=== PATIENT | female | born 1965 | race Caucasian/White ===

== ENCOUNTER 2017-04-19 08:55 | Outpatient (CLI) | payer SELFPAY | END 2017-04-19 08:56 | disposition home or self-care (01) | LOC: LAB 08:55 | PROVIDERS: ATTEND Nurse Practitioner Primary Care | DX: E03.9 Hypothyroidism, unspecified (principal) | CPT/HCPCS: 36415; 84443 ==

== ENCOUNTER 2017-08-07 11:56 | Outpatient (CLI) | payer OTHER ==
--- NOTE | 2017-08-07 13:51 | XRAY Report ---
DATE OF SERVICE: 08/07/2017 THREE VIEW RIGHT KNEE: 08/07/2017 CLINICAL INDICATION: Pain, status post fall. FINDINGS: AP, lateral, sunrise views of the right knee demonstrate no evidence of fracture or dislocation. No effusion is present. Anterior soft tissue swelling is seen. No foreign body is seen in the soft tissues. IMPRESSION: ANTERIOR SOFT TISSUE SWELLING, BUT NO EVIDENCE OF FRACTURE OR RADIOPAQUE FOREIGN BODY. TD: 08/07/2017 14:50
== END 2017-08-07 11:57 | disposition home or self-care (01) ==
LOC: DI 11:56
PROVIDERS: ATTEND Internal Medicine
DX: M25.561 Pain in right knee (principal); R22.41 Localized swelling, mass and lump, right lower limb

== ENCOUNTER 2018-11-12 23:13 | Emergency (ER) | payer OTHER ==
--- NOTE | 2018-11-12 23:32 | ED Physician Documentation ---
PD HPI CHEST PAIN - Stated complaint Stated Complaint: HIGH BLOOD PRESSURE - Chief complaint Chief Complaint: Cardiac - History obtained from History obtained from: Patient - History of Present Illness Timing - onset: Today (She was feeling some intermittent skipping heartbeat palpitations without any chest pain or dyspnea. She is that she should take her blood pressure and it was markedly elevated at home. She had recently started taking her blood pressure at times at home and it noted it to be as low as 120/80 last week. Had been somewhat elevated when she was at the doctor's office but usually is good at home. She does not take any blood pressure medicines.) Timing - onset during: Rest, Light activity Timing - duration: Minutes (She does not have any chest pain or dyspnea per se. She was having a feeling of skipped beats lasting a few minutes at a time intermittently today. She noticed it a little bit more this evening and that was when she took her blood pressure that was elevated.) Timing - details: Intermittant Quality: Other (feeling of palpitations). No: Pressure, Tightness Improved by: No: Rest (she noted the palpitations mainly when resting this evening) Worsened by: No: Inspiration, Movement Associated symptoms: Palpitations. No: Shortness of air, Nausea, Feeling faint / dizzy, Cough Similar symptoms before: Has not had sx before Recently seen: Not recently seen Review of Systems Constitutional: denies: Fever Nose: denies: Rhinorrhea / runny nose, Congestion Throat: denies: Sore throat Cardiac: reports: Palpitations. denies: Chest pain / pressure, Pedal edema, Calf pain Respiratory: denies: Dyspnea, Cough GI: denies: Abdominal Pain, Nausea, Vomiting, Diarrhea Musculoskeletal: denies: Neck pain, Back pain, Extremity swelling PD PAST MEDICAL HISTORY - Past Medical History Past Medical History: Yes Cardiovascular: None Respiratory: None Neuro: None Endocrine/Autoimmune: HyPOthyroidism - Past Surgical History Past Surgical History: Yes HEENT: Tonsil/Adenoidectomy - Present Medications Home Medications: Ambulatory Orders Medication Instructions Recorded Confirmed Levothyroxine [Synthroid] 125 mcg PO QDAC 11/12/18 11/12/18 Losartan [Cozaar] 50 mg PO DAILY #30 tablet 11/13/18 - Allergies Allergies/Adverse Reactions: Allergies Allergy/AdvReac Type Severity Reaction Status Date / Time No Known Drug Allergies Allergy Verified 11/12/18 23:23 - Social History Does the pt smoke?: No Smoking Status: Never smoker Does the pt drink ETOH?: Yes Does the pt have substance abuse?: No - Family History Family history: reports: CAD - Immunizations Immunizations are current?: Yes PD ED PE NORMAL - Vitals Vital signs reviewed: Yes - General General: Alert and oriented X 3, No acute distress, Well developed/nourished - HEENT HEENT: Pharynx benign - Neck Neck: Supple, no meningeal sign, No adenopathy - Cardiac Cardiac: RRR, No murmur - Respiratory Respiratory: Clear bilaterally - Abdomen Abdomen: Normal bowel sounds, Soft, Non distended - Derm Derm: Normal color, Warm and dry - Extremities Extremities: No tenderness to palpate, Normal ROM s pain, No edema, No calf tenderness / cord - Neuro Neuro: Alert and oriented X 3, No motor deficit, Normal speech Results - Vitals Vitals: Vital Signs - 24 hr 11/12/18 11/12/18 11/12/18 23:19 23:24 23:45 Temperature 36.9 C Heart Rate 82 69 65 Respiratory 18 16 Rate Blood Pressure 207/108 H 184/101 H 174/99 H O2 Saturation 96 97 11/13/18 00:39 Temperature Heart Rate 66 Respiratory 16 Rate Blood Pressure 148/99 H O2 Saturation 95 Oxygen O2 Source Room air - EKG (time done) 23:19 Rate: Rate (enter#) (67) Rhythm: NSR [place]: Normal Intervals: Normal GA QRS: Normal Ischemia: Normal ST segments. No: ST elevation c/w ischemia, ST depression Compare to prior EKG: Old EKG unavailable - Labs Labs: Laboratory Tests 11/12/18 11/12/18 11/12/18 23:55 23:55 23:55 Sodium 136 Potassium 3.6 Chloride 99 L Carbon Dioxide 24 Anion Gap 13.0 BUN 22 H Creatinine 0.6 Estimated GFR (MDRD) 105 Glucose 114 H Calcium 8.9 Magnesium 2.3 Total Bilirubin 0.9 AST 32 ALT 52 Alkaline Phosphatase 63 Troponin I < 0.04 Total Protein 7.0 Albumin 3.8 Globulin 3.2 Albumin/Globulin Ratio 1.2 Lipase 47 TSH 8.49 H PD MEDICAL DECISION MAKING - ED course Complexity details: considered differential (She describes palpitations. Its associated with the quite elevated blood pressure. However she does not have consistent history of high blood pressure. I did check electrolytes kidney function and troponin to ensure these are okay. Her potassium was at the low end of normal at 3.6 and I gave her extra dose. At this point to presume the blood pressure just spiraled up related to catecholamine feedback. I think her palpitations sound benign. The blood pressure was improving here without specific treatment and at time of discharge was down to 147/99. I talked with her and told her I did not feel they wanted to specifically treat the blood pressure right now for fear of going too low. She is to check it over the next few days to week and start a mild blood pressure medicine if persistently high with a target being under 150. Otherwise she is to follow-up with her primary care.), d/w patient Departure - Departure Disposition: Home, Self Care Clinical Impression: Heart palpitations, Episode of hypertension Condition: Stable Record reviewed to determine appropriate education?: Yes Instructions: ED Hypertension Poss Follow-Up: Stew Dennis MD [Credentialed Staff Provider] - Prescriptions: Losartan [Cozaar] 50 mg PO DAILY #30 tablet Comments: Your blood pressure was quite high today but has decreased on its own. Your electrolytes, kidney function, heart tests are normal here. Sometimes this can be just an apparent spiraling feedback with adrenaline causing the blood pressure to spiral high. Meaning it may be a single episode and not part of an ongoing high blood pressure. See how your blood pressure does over the next several days to week. If you are consistently high, meaning over 1 50-1 60 systolic, over the next few days, then you can start a mild blood pressure medicine losartan 50 mg daily. If your blood pressure is good enough then just follow-up with your primary care. Your potassium level was on the low normal and and so you could add some potassium supplements over the next week and see if you have less palpitations. Discharge Date/Time: 11/13/18 01:09
[2018-11-13 00:21] LABS: ALBUMIN 3.8 g/dL (3.2-5.5); ALBUMIN/GLOBULIN RATIO 1.2 (1.0-2.2); BILIRUBIN,TOTAL 0.9 mg/dL (0.2-1.0); CALCIUM 8.9 mg/dL (8.5-10.3)
[2018-11-13 00:38] LABS: CREATININE 0.6 mg/dL (0.4-1.0); MAGNESIUM 2.3 mg/dL (1.7-2.8)
[2018-11-13 00:40] VITALS: BP 148/99
[2018-11-13] MEDS ORDERED: POTASS CIT/CITRIC ACID ORAL 1 EACH PACKET PO STA (00:51)
== END 2018-11-13 01:09 | disposition home or self-care (01) ==
LOC: ED 23:13
DX: R00.2 Palpitations (principal); I10 Essential (primary) hypertension; Z82.49 Family history of ischemic heart disease and other diseases of the circulatory system
CPT/HCPCS: 36415; 80053; 83690; 83735; 84443; 84484; 93005; 99283; A9270

== ENCOUNTER 2022-03-06 21:51 | Emergency (ER) | payer MEDICAID, OTHER | END 2022-03-06 22:58 | disposition left against medical advice (07) | LOC: ED 21:51 | DX: Z53.21 Procedure and treatment not carried out due to patient leaving prior to being seen by health care provider (principal) ==

== ENCOUNTER 2022-05-16 08:20 | Outpatient (CLI) | payer MEDICAID ==
[2022-05-16 08:32] LABS: BASOPHILS # (AUTO) 0.1 10^3/uL (0.0-0.1); BASOPHILS % (AUTO) 0.7 %; EOSINOPHILS # (AUTO) 0.2 10^3/uL (0.0-0.7); EOSINOPHILS % (AUTO) 2.4 %; HCT - HEMATOCRIT 44.9 % (37.0-47.0); HGB - HEMOGLOBIN 14.8 g/dL (12.0-16.0); LYMPHOCYTES # (AUTO) 3.3 10^3/uL (1.5-3.5); MEAN CORPUSCULAR HEMOGLOBIN 30.7 pg (27.0-31.0); MEAN CORPUSCULAR VOLUME 93.2 fL (81.0-99.0); MEAN PLATELET VOLUME 9.1 fL (7.9-10.8); MONOCYTES # (AUTO) 0.6 10^3/uL (0.0-1.0); MONOCYTES % (AUTO) 6.4 %; NEUTROPHILS # (AUTO) 4.7 10^3/uL (1.5-6.6); NEUTROPHILS % (AUTO) 53.3 %; PLT - PLATELET COUNT 363 10^3/uL (130-450); RED BLOOD COUNT 4.82 10^6/uL (4.20-5.40); RED CELL DISTRIBUTION WIDTH 12.1 % (12.0-15.0); WHITE BLOOD COUNT 8.9 x10^3/uL (4.8-10.8)
[2022-05-16 09:00] LABS: ALBUMIN 4.6 g/dL (3.2-5.5); ALBUMIN/GLOBULIN RATIO 1.4 (1.0-2.2); ALKALINE PHOSPHATASE 63 IU/L (42-121); ALT ALANINE AMINOTRANSFERASE 72 IU/L (10-60); AST ASPARTATE AMINOTRANSFERASE 41 IU/L (10-42); BILIRUBIN,TOTAL 0.9 mg/dL (0.2-1.0); BUN - BLOOD UREA NITROGEN 16 mg/dL (6-20); CALCIUM 9.2 mg/dL (8.5-10.3); CARBON DIOXIDE - CO2 27 mmol/L (21-32); CHLORIDE 100 mmol/L (101-111); CHOL/HDL RATIO 5.7 (<4.4); CHOLESTEROL 234 mg/dL; CREATININE 0.7 mg/dL (0.4-1.0); GFR - MDRD 87 (>89); GLUCOSE 103 mg/dL (70-100); HDL CHOLESTEROL 41 mg/dL; LDL CHOLESTEROL,CALCULATED 174 mg/dL; LDL/HDL RATIO 4.2 (<4.4); POTASSIUM 4.2 mmol/L (3.5-5.0); SODIUM 138 mmol/L (135-145); TRIGLYCERIDES 93 mg/dL; VLDL CHOLESTEROL 19 mg/dL
[2022-05-16 09:01] LABS: THYROID STIMULATING HORMONE 1.4 uIU/mL (0.34-5.60)
[2022-05-16 09:14] LABS: ESTIMATED AVERAGE GLUCOSE 131 mg/dL (70-100); HEMOGLOBIN A1c% 6.2 % (4.27-6.07)
== END 2022-05-16 08:21 | disposition home or self-care (01) ==
LOC: LAB 08:20
PROVIDERS: ATTEND Family Medicine
DX: E78.5 Hyperlipidemia, unspecified (principal); E88.81 Metabolic syndrome and other insulin resistance; E03.9 Hypothyroidism, unspecified
CPT/HCPCS: 36415; 80053; 80061; 83036; 83721; 84443; 85025

== ENCOUNTER 2022-05-27 21:00 | Emergency (ER) | payer MEDICAID ==
[2022-05-27 21:37] LABS: BASOPHILS % (AUTO) 0.3 %; EOSINOPHILS # (AUTO) 0.1 10^3/uL (0.0-0.7); HCT - HEMATOCRIT 44.1 % (37.0-47.0); HGB - HEMOGLOBIN 14.5 g/dL (12.0-16.0); LYMPHOCYTES # (AUTO) 2.1 10^3/uL (1.5-3.5); LYMPHOCYTES % (AUTO) 14.3 %; MEAN CORPUSCULAR HEMOGLOBIN 30.1 pg (27.0-31.0); MEAN CORPUSCULAR HGB CONC 32.9 g/dL (32.0-36.0); MEAN CORPUSCULAR VOLUME 91.7 fL (81.0-99.0); MEAN PLATELET VOLUME 9.2 fL (7.9-10.8); MONOCYTES # (AUTO) 1.1 10^3/uL (0.0-1.0); MONOCYTES % (AUTO) 7.4 %; NEUTROPHILS # (AUTO) 11.2 10^3/uL (1.5-6.6); NEUTROPHILS % (AUTO) 76.7 %; PLT - PLATELET COUNT 385 10^3/uL (130-450); RED BLOOD COUNT 4.81 10^6/uL (4.20-5.40); RED CELL DISTRIBUTION WIDTH 12.3 % (12.0-15.0); WHITE BLOOD COUNT 14.6 x10^3/uL (4.8-10.8)
[2022-05-27 21:39] LABS: BILIRUBIN,URINE NEGATIVE (NEGATIVE); GLUCOSE, URINE (UA) NEGATIVE (NEGATIVE); KETONES,URINE (UA) NEGATIVE (NEGATIVE); LEUKOCYTE ESTERASE, URINE NEGATIVE (NEGATIVE); NITRITE,URINE NEGATIVE (NEGATIVE); OCCULT BLOOD,URINE LARGE (NEGATIVE); PROTEIN,URINE NEGATIVE (NEGATIVE); UROBILINOGEN,URINE 0.2 (NORMAL) E.U./dL (NORMAL)
[2022-05-27 21:48] LABS: CLARITY,URINE HAZY (CLEAR)
[2022-05-27 21:50] LABS: ALBUMIN 4.7 g/dL (3.2-5.5); ALBUMIN/GLOBULIN RATIO 1.5 (1.0-2.2); BILIRUBIN,TOTAL 1.3 mg/dL (0.2-1.0); CALCIUM 9.4 mg/dL (8.5-10.3); CREATININE 0.7 mg/dL (0.4-1.0); POTASSIUM 4.1 mmol/L (3.5-5.0); TOTAL PROTEIN 7.9 g/dL (6.7-8.2)
[2022-05-27 21:53] LABS: BACTERIA,URINE None Seen /HPF (None Seen); SQUAMOUS EPITHELIAL CELL,UR MOD Squamous (<= Few); WBC,URINE 0-3 /HPF (0-5)
--- NOTE | 2022-05-27 22:37 | ED Physician Documentation ---
PD HPI FEMALE - Stated complaint Stated Complaint: FEMALE /ABD PX - Chief complaint Chief Complaint: Abd Pain - History obtained from History obtained from: Patient - History of Present Illness Timing - onset: Yesterday Timing - details: Abrupt onset, Intermittant, Waxing and waning Pain level max: 6 Pain level max: 2 Associated symptoms: Pelvic pain Contributing factors: No: Similar symptoms before: Has not had sx before - Additional information Additional information: C/O intermittent pelvic/suprapubic cramping since yesterday, nearly 24 hours since onset, waxing and waning without ameliorating or exacerbating factors. Denies fever, n/v, denies . Feels urinary frequency, urgency Review of Systems Constitutional: denies: Fever, Chills, Sweats GI: denies: Abdominal Pain, Nausea, Vomiting, Constipation, Diarrhea : reports: Dysuria, Frequency. denies: Hematuria Musculoskeletal: denies: Back pain PD PAST MEDICAL HISTORY - Past Medical History Cardiovascular: None Respiratory: None Neuro: None Endocrine/Autoimmune: HyPOthyroidism - Past Surgical History Past Surgical History: Yes HEENT: Tonsil/Adenoidectomy - Present Medications Home Medications: Ambulatory Orders Medication Instructions Recorded Confirmed Levothyroxine [Synthroid] 125 mcg PO QDAC 11/12/18 11/12/18 Losartan [Cozaar] 50 mg PO DAILY #30 tablet 11/13/18 Nitrofurantoin [Macrobid] 100 mg PO BID #9 cap 05/27/22 Phenazopyridine HCl [Pyridium] 200 mg PO TID PRN #6 tablet 05/27/22 traMADol [Ultram] 50 mg PO Q4-6H PRN #14 tablet 05/27/22 - Allergies Allergies/Adverse Reactions: Allergies Allergy/AdvReac Type Severity Reaction Status Date / Time No Known Drug Allergies Allergy Verified 05/27/22 21:19 - Social History Does the pt smoke?: No Smoking Status: Never smoker Does the pt drink ETOH?: Yes Does the pt have substance abuse?: No - Immunizations Immunizations are current?: Yes PD ED PE NORMAL - Vitals Vital signs reviewed: Yes - General General: Alert and oriented X 3, No acute distress, Well developed/nourished - Cardiac Cardiac: RRR, No murmur - Respiratory Respiratory: No respiratory distress, Clear bilaterally - Abdomen Abdomen: Soft, Non tender - Back Back: No CVA TTP - Derm Derm: Normal color, Warm and dry Results - Vitals Vitals: Oxygen O2 Source Room air - Labs Labs: Laboratory Tests 05/27/22 05/27/22 05/27/22 21:30 21:30 21:30 WBC 14.6 H RBC 4.81 Hgb 14.5 Hct 44.1 MCV 91.7 MCH 30.1 MCHC 32.9 RDW 12.3 Plt Count 385 MPV 9.2 Neut # (Auto) 11.2 H Lymph # (Auto) 2.1 [place] # (Auto) 1.1 H Eos # (Auto) 0.1 Baso # (Auto) 0.0 Absolute Nucleated RBC 0.00 Nucleated RBC % 0.0 Sodium 135 Potassium 4.1 Chloride 100 L Carbon Dioxide 23 Anion Gap 12.0 BUN 15 Creatinine 0.7 Estimated GFR (MDRD) 87 L Glucose 128 H Calcium 9.4 Total Bilirubin 1.3 H AST 24 ALT 53 Alkaline Phosphatase 66 Total Protein 7.9 Albumin 4.7 Globulin 3.2 Albumin/Globulin Ratio 1.5 Lipase 164 H Urine Color YELLOW Urine Clarity HAZY Urine pH 6.0 Ur Specific [place] 1.025 Urine Protein NEGATIVE Urine Glucose (UA) NEGATIVE Urine Ketones NEGATIVE Urine Occult Blood LARGE H Urine Nitrite NEGATIVE Urine Bilirubin NEGATIVE Urine Urobilinogen 0.2 (NORMAL) Ur Leukocyte Esterase NEGATIVE Urine RBC 6-10 H Urine WBC 0-3 Ur Squamous Epith Cells MOD Squamous H Urine Bacteria None Seen Ur Microscopic Review INDICATED Urine Culture Comments NOT INDICATED PD MEDICAL DECISION MAKING - ED course Complexity details: reviewed results, re-evaluated patient, considered differential, d/w patient ED course: UA only notable for RBC, although her symptoms are suggestive of UTI. She denies vaginal discharge. Nontender on exam. No CVAT. Mild leukoyctosis (14 WBC). Will treat empirically for UTI , as the symptoms are c/w this diagnosis. Given macrobid in ED and rx for same I am prescribing a short course of short-acting opioid pain medication for this patient. I have reviewed the patients GEOLOGICAL MANAGER and no concerning findings were noted. I have discussed that the opioids are for short term therapy only, and will not be refilled from the ED Departure - Departure Disposition: 01 Home, Self Care Clinical Impression: Pelvic cramping Hematuria Qualifiers: Hematuria type: unspecified type Qualified Code(s): R31.9 - Hematuria, unspecified Condition: Good Instructions: ED Hematuria, ED Pelvic Pain [facility] Follow-Up: Danna Spence ARNP [Primary Care Provider] - Within 1 week Prescriptions: Nitrofurantoin [Macrobid] 100 mg PO BID #9 cap Phenazopyridine HCl [Pyridium] 200 mg PO TID PRN #6 tablet PRN Reason: dysuria traMADol [Ultram] 50 mg PO Q4-6H PRN #14 tablet PRN Reason: Pain Comments: There are no concerning findings on tonight's tests. There is blood in the urine on urinalysis but no other abnormality on this test. You have a mildly elevated white blood cell count. Although the urinalysis results are not suggestive of a urinary tract infection, many of your symptoms are and thus an antibiotic is being prescribed. If your symptoms are due to a urinary tract infection, the symptoms should resolve within 2-3 days of the antibiotic (total of five day course). You need to follow up with your primary care provider even if the symptoms resolve, as further tests might be needed regarding the blood in the urine. Return to the emergency department if your symptoms worsen in any way, or if you develop new/concerning signs/symptoms (such as fever, abdominal pain). Prescriptions for nitrofurantoin (antibiotic), tramadol (opiate pain medication), and pyridium (can help with UTI symptoms) have been electronically submitted to [facility] pharmacy in [place]. I am prescribing a short course of narcotic pain medication for you. These are potentially dangerous and addictive medications that should be used carefully. These medications may constipate you. Take an [id number] stool softener (docusate) twice daily with plenty of water while taking these medications. If you go 24 hours without a bowel movement, take [id number] miralax, per package instructions. Do not drink or drive while taking these medications. If you received narcotic or sedating medications while in the emergency department, do not drive for 24 hours. Store this medication in a safe, secure place and out of reach of children. It is a violation of federal law to give or sell this medication to another person or to use in a manner other than prescribed. The ED will not refill narcotic prescriptions, including prescriptions lost or stolen. To dispose of unwanted medications: 1. [facility] at [address] in [place] has a medication drop box. They accept prescription medications (in pill form) Saturday through Saturday 9:00 a.m. to 5:00 p.m. 2. The [facility] [place] [employer] accepts prescription medications (in pill form only) for disposal year round. Call for more information. 3. Contact the [facility] for the next [facility] sponsored prescription drug collection event. , [phone], or [phone]; Discharge Date/Time: 05/27/22 23:08
[2022-05-27] MEDS ORDERED: PHENAZOPYRIDINE 100 MG TABLET PO STA (22:53)
[2022-05-27] MEDS ORDERED: NITROFURANTOIN MACRO 100 MG CAPSULE PO STA (22:53)
[2022-05-27] MEDS ORDERED: traMADol 50 MG TABLET PO STA (22:54)
[2022-05-27 23:10] VITALS: BP 130/80
== END 2022-05-27 23:08 | disposition home or self-care (01) ==
LOC: ED 21:00
DX: R10.2 Pelvic and perineal pain (principal); R31.9 Hematuria, unspecified; R30.0 Dysuria; R35.0 Frequency of micturition; D72.829 Elevated white blood cell count, unspecified
CPT/HCPCS: 36415; 80053; 81001; 83690; 85025; 99282; 99283; A9270; 81003; 87086

== ENCOUNTER 2022-07-11 11:17 | Outpatient (CLI) | payer MEDICAID ==
--- NOTE | 2022-07-12 12:46 | Mammography Report ---
BILATERAL DIGITAL SCREENING MAMMOGRAM 3D/2D: 07/11/2022 CLINICAL: Routine screening. No prior exams were available for comparison. There are scattered areas of fibroglandular density in both breasts (category b / 25%-50% glandular t issue). There is a 0.9 cm oval equal density focal asymmetry in the left breast at 4 o'clock middle depth. No other significant masses, calcifications, or other findings are seen in either breast. IMPRESSION: INCOMPLETE: NEEDS ADDITIONAL IMAGING EVALUATION The 0.9 cm oval equal density focal asymmetry in the left breast resembles a cyst, a lymph node, or a fibroadenoma and is indeterminate. Additional views with possible ultrasound are recommended. Based on the Tyrer Cuzick model (a risk assessment model) the patients lifetime risk is 9.8% and her 10 year risk is 3.0%. According to the ACR, ACS, and NCCN guidelines, an annual breast MRI exam chuck g with mammogram is recommended if the patients lifetime risk is 20% or greater. This exam was interpreted at Station ID: [id number]. NOTE: For mammograms, a report in lay terms will be sent to the patient. Approximately 15% of breast malignancies will not be visualized mammographically. In the management of a palpable breast mass, a negative mammogram must not discourage biopsy of a clinically suspicious lesion. Electronically Signed By: Camron Blakely M.D. aty/:07/11/2022 16:24:24 ACR BI-RADS Category 0: Incomplete [id number] PARENCHYMAL PATTERN: (A) - The breast(s) demonstrate(s) scattered fibroglandular densities. BI-RADS CATEGORY: (0) - 0 Mammo and [place] [id number] Immediate follow-up LATERALITY: (L)
== END 2022-07-11 11:18 | disposition home or self-care (01) ==
LOC: DI 11:17
PROVIDERS: ATTEND Nurse Practitioner
DX: Z12.31 Encounter for screening mammogram for malignant neoplasm of breast (principal); R92.8 Other abnormal and inconclusive findings on diagnostic imaging of breast

== ENCOUNTER 2023-05-27 08:32 | Outpatient (CLI) | payer MEDICAID ==
[2023-05-27 08:48] LABS: BASOPHILS # (AUTO) 0.1 10^3/uL (0.0-0.1); BASOPHILS % (AUTO) 0.7 %; EOSINOPHILS # (AUTO) 0.3 10^3/uL (0.0-0.7); EOSINOPHILS % (AUTO) 3.1 %; HCT - HEMATOCRIT 44.3 % (37.0-47.0); HGB - HEMOGLOBIN 14.6 g/dL (12.0-16.0); LYMPHOCYTES % (AUTO) 36.6 %; MEAN CORPUSCULAR VOLUME 94.1 fL (81.0-99.0); MEAN PLATELET VOLUME 9.1 fL (7.9-10.8); MONOCYTES # (AUTO) 0.6 10^3/uL (0.0-1.0); MONOCYTES % (AUTO) 7.2 %; NEUTROPHILS # (AUTO) 4.3 10^3/uL (1.5-6.6); NEUTROPHILS % (AUTO) 52.2 %; PLT - PLATELET COUNT 354 10^3/uL (130-450); RED BLOOD COUNT 4.71 10^6/uL (4.20-5.40); RED CELL DISTRIBUTION WIDTH 12.2 % (12.0-15.0); WHITE BLOOD COUNT 8.2 x10^3/uL (4.8-10.8)
[2023-05-27 09:02] LABS: ALBUMIN 4.4 g/dL (3.2-5.5); ALBUMIN/GLOBULIN RATIO 1.8 (1.0-2.2); ALKALINE PHOSPHATASE 70 IU/L (42-121); ALT ALANINE AMINOTRANSFERASE 64 IU/L (10-60); AST ASPARTATE AMINOTRANSFERASE 33 IU/L (10-42); BILIRUBIN,TOTAL 0.7 mg/dL (0.2-1.0); BUN - BLOOD UREA NITROGEN 12 mg/dL (6-20); CALCIUM 9.3 mg/dL (8.5-10.3); CARBON DIOXIDE - CO2 28 mmol/L (21-32); CHLORIDE 101 mmol/L (101-111); CHOL/HDL RATIO 4.9 (<4.4); CHOLESTEROL 250 mg/dL; CREATININE 0.7 mg/dL (0.6-1.3); GFR - MDRD 87 (>89); GLUCOSE 159 mg/dL (74-104); HDL CHOLESTEROL 51 mg/dL; LDL CHOLESTEROL,CALCULATED 154 mg/dL; POTASSIUM 4.1 mmol/L (3.5-4.5); SODIUM 135 mmol/L (135-145); TOTAL PROTEIN 6.9 g/dL (6.4-8.9); TRIGLYCERIDES 224 mg/dL (48-352); VLDL CHOLESTEROL 45 mg/dL
[2023-05-27 09:37] LABS: THYROID STIMULATING HORMONE 5.42 uIU/mL (0.34-5.60)
[2023-05-27 11:57] LABS: ESTIMATED AVERAGE GLUCOSE 123 mg/dL (70-100); HEMOGLOBIN A1c% 5.9 % (4.27-6.07)
== END 2023-05-27 08:33 | disposition home or self-care (01) ==
LOC: LAB 08:32
PROVIDERS: ATTEND Nurse Practitioner
DX: I10 Essential (primary) hypertension (principal); E78.5 Hyperlipidemia, unspecified; E66.9 Obesity, unspecified; E03.9 Hypothyroidism, unspecified; E88.810 Metabolic syndrome
CPT/HCPCS: 36415; 80053; 80061; 83036; 83721; 84439; 84443; 85025